=== PATIENT | male | born 1975 | race Caucasian/White ===

== ENCOUNTER 2017-04-17 17:29 | Emergency (ER) | payer OTHER ==
[~2017-04-17] VITALS: Ht 177.8 cm; Wt 117.9 kg
[~2017-04-17 17:29] MED LIST: BUPR75 PO; Citrate Of Mag300 ML PO; DOXE50 PO; DULOXETINE HCL30 MG PO; FLUT44OIA INH; HEARTBURN RELI150 M1 PO; HYDPAM25 PO; Motrin800 MG PO; NAPR500 PO; PENVK500 PO; TOPI25 PO; TOPI50 PO; Zofran4 MG PO
[2017-04-17 18:27] LABS: BASOPHILS ABSOLUTE AUTO 0.04 K/mm3 (0.00-0.23); BASOPHILS PERCENT AUTO 0 % (0-2); EOSINOPHILS ABSOLUTE AUTO 0.27 K/mm3 (0.00-0.68); EOSINOPHILS PERCENT AUTO 2 % (0-6); Hematocrit 45.5 % (37.0-53.0); Hemoglobin 15.4 g/dL (13.5-17.5); IMMATURE GRAN ABSOLUTE AUTO 0.08 K/mm3 (0.00-0.10); IMMATURE GRAN PERCENT AUTO 1 % (0-1); LYMPHOCYTES ABSOLUTE AUTO 3.74 K/mm3 (0.84-5.20); LYMPHOCYTES PERCENT AUTO 30 % (21-46); MONOCYTES ABSOLUTE AUTO 1.13 K/mm3 (0.16-1.47); MONOCYTES PERCENT AUTO 9 % (4-13); Mean Corpuscular HGB 30.6 pg (26.0-34.0); Mean Corpuscular HGB Conc 33.8 g/dL (31.5-36.5); Mean Corpuscular Volume 91 fL (80-100); Mean Platelet Volume 9.7 fL (9.1-12.4); NEUTROPHILS ABSOLUTE AUTO 7.12 K/mm3 (1.96-9.15); NEUTROPHILS PERCENT AUTO 58 % (41-73); Platelet Count 303 K/mm3 (150-400); RDW Coefficient Variation 12.3 % (11.7-14.2); RDW Standard Deviation 40.4 fL (35.1-46.3); Red Blood Cell Count 5.03 M/mm3 (4.30-5.90); White Blood Cell Count 12.38 K/mm3 (4.00-11.30)
[2017-04-17 18:43] LABS: Alanine Aminotransfer (ALT/SGP 34 U/L (12-78); Albumin, Blood 3.2 g/dL (3.4-5.0); Albumin/Globulin Ratio 0.9 (0.8-1.8); Alk Phos 85 U/L (50-136); Anion Gap 8 mmol/L (6-16); Aspartate Aminotrans (AST/SGOT 22 U/L (12-37); Bilirubin, Total 0.2 mg/dL (0.1-1.0); Blood Urea Nitrogen 16 mg/dL (8-24); Bun/Creatinine Ratio 21.6 (12.0-20.0); CO2, Blood 24 mmol/L (21-32); Calcium, Blood 8.2 mg/dL (8.5-10.1); Chloride, Blood 110 mmol/L (98-108); Creatinine, Blood 0.74 mg/dL (0.60-1.20); Globulin, Blood 3.5 g/dL (2.2-4.0); Glomerular Filtration Rate >60 (60-); Glucose, Blood 100 mg/dL (70-99); Potassium, Blood 3.8 mmol/L (3.5-5.5); Sodium, Blood 142 mmol/L (136-145); Total Protein, Blood 6.7 g/dL (6.4-8.2)
== END 2017-04-17 20:48 | disposition home or self-care (01) ==
LOC: ER 17:29
PROVIDERS: Psychiatry & Neurology Psychiatry
DX: A08.4 Viral intestinal infection, unspecified (principal); Z91.040 Latex allergy status; Z91.011 Allergy to milk products; F32.9 Major depressive disorder, single episode, unspecified; F41.9 Anxiety disorder, unspecified; F31.9 Bipolar disorder, unspecified; F17.210 Nicotine dependence, cigarettes, uncomplicated
CPT/HCPCS: 36415; 80053; 83690; 85025; 99283

== ENCOUNTER 2017-08-03 17:49 | Emergency (ER) | payer OTHER ==
[~2017-08-03] VITALS: Ht 180.3 cm; Wt 129.3 kg
[2017-08-03] MEDS ORDERED: Omeprazole20 M1 (17:57)
[2017-08-03] MEDS ORDERED: PSEU120ER PO (19:09)
[2017-08-03] MEDS ORDERED: Flonase 0.05% N16 GM (19:09)
== END 2017-08-03 19:28 | disposition home or self-care (01) ==
LOC: ER 17:49
DX: J32.9 Chronic sinusitis, unspecified (principal); Z91.040 Latex allergy status; Z91.011 Allergy to milk products; Z79.899 Other long term (current) drug therapy; F32.9 Major depressive disorder, single episode, unspecified; F41.9 Anxiety disorder, unspecified; F31.9 Bipolar disorder, unspecified; F17.210 Nicotine dependence, cigarettes, uncomplicated
CPT/HCPCS: 99282

== ENCOUNTER 2018-09-13 03:33 | Emergency (ER) | payer SELFPAY ==
[~2018-09-13] VITALS: Ht 180.3 cm; Wt 127.0 kg
[~2018-09-13 03:33] MED LIST changes: +Flonase 0.05% N16 GM; +Omeprazole20 M1; +PSEU120ER PO
== END 2018-09-13 05:22 | disposition home or self-care (01) ==
LOC: ER 03:33
DX: S20.211A Contusion of right front wall of thorax, initial encounter (principal); S50.01XA Contusion of right elbow, initial encounter; S60.221A Contusion of right hand, initial encounter; W18.2XXA Fall in (into) shower or empty bathtub, initial encounter; Z91.040 Latex allergy status; Z91.011 Allergy to milk products; F17.210 Nicotine dependence, cigarettes, uncomplicated
CPT/HCPCS: 71101; 73080; 73130; 96372; 99283-25; J1885